=== PATIENT | male | born 1965 | race Asian ===

== ENCOUNTER 2021-08-05 16:03 | Emergency (ER) | payer OTHER ==
[~2021-08-05] VITALS: Ht 182.9 cm; Wt 102.1 kg
[2021-08-05 16:12] VITALS: TEMP 98.5
[2021-08-05 18:00] VITALS: BP 130/82
== END 2021-08-05 18:00 | disposition home or self-care (01) ==
LOC: ED 16:03
DX: M24.811 Other specific joint derangements of right shoulder, not elsewhere classified (principal); X50.9XXA Other and unspecified overexertion or strenuous movements or postures, initial encounter; Y92.89 Other specified places as the place of occurrence of the external cause
CPT/HCPCS: 96372; 99283; J1885

== ENCOUNTER 2022-12-04 11:51 | Outpatient (CLI) | payer OTHER | END 2022-12-04 19:37 | disposition home or self-care (01) | LOC: RAD 11:51 | PROVIDERS: ATTEND Nurse Practitioner Family | DX: M54.17 Radiculopathy, lumbosacral region (principal) ==